=== PATIENT | female | born 1955 | race Caucasian/White ===

== ENCOUNTER 2019-07-29 10:58 | Day surgery (SDC) | payer BC ==
[2019-07-29] VITALS (10 sets, daily range): BP systolic 120–145; BP diastolic 72–91
[~2019-07-29] VITALS: Ht 162.6 cm; Wt 58.2 kg
[2019-07-29] MEDS ORDERED: CLINDAmcin 900mg/NS 50ml IVPB 50 ML IV ONE (11:10)
[2019-07-29] MEDS ORDERED: famotidine 20mg tablet PO ONE (11:12)
[2019-07-29] MEDS ORDERED: ringers solution, lacted 1,000 ML IV SCH ×2 (11:13→15:30)
[2019-07-29] MEDS ORDERED: HYDR-3972 PO (12:44)
[2019-07-29] MEDS ORDERED: ALLO100T15 PO (12:44)
[2019-07-29] MEDS ORDERED: [UNRECOGNIZED DRUG - CODE] PO (12:44)
[2019-07-29] MEDS ORDERED: IRBE150T24 PO (12:44)
[2019-07-29] MEDS ORDERED: LEVO150T8 PO (12:44)
[2019-07-29] MEDS ORDERED: LIDOcaine 1%/PF 5ML 10 MG/ML VIAL ONE (13:21)
[2019-07-29] MEDS ORDERED: sevoflurane 250ml liquid IH ONE (13:21)
[2019-07-29] MEDS ORDERED: fentaNYL/PF 50MCG/1 ML 2ML syringe ONE ×2 (13:22→13:52)
[2019-07-29] MEDS ORDERED: midazolam 2 mg/2 ml injection ONE (13:22)
[2019-07-29] MEDS ORDERED: BUPIVAcaine/PF 2.5mg/ml (0.25%) 10ml vial ONE ×2 (13:50→13:57)
[2019-07-29] MEDS ORDERED: ondansetron/PF 4mg/2ml inj ONE (14:03)
[2019-07-29] MEDS ORDERED: LIDOcaine 2% (20mg/ml) 5ml vial ONE (14:03)
[2019-07-29] MEDS ORDERED: dexamethasone sod phosphate 4mg/ml inj. ONE (14:03)
[2019-07-29] MEDS ORDERED: propofol inj 20 ML IV ONE (14:03)
--- NOTE | 2019-07-29 14:03 | NUR ---
Received from OR via [facility], accompanied by Anesthesiologist Chayito and report given by Anesthesiolgist. Pt VS stable O2 10L sats 98%, groin site tegaderm present and site CDI no hematoma present. 20G to right forearm 100cc/hr LR IVF. Will monitor closely.
[2019-07-29] MEDS ORDERED: meperidine/PF 25mg/ml syringe ONE ×2 (14:29→15:09)
[2019-07-29] MEDS: meperidine/PF 25mg/ml syringe IV PRN ×2 (15:07→15:16)
[2019-07-29] MEDS ORDERED: morphine 2 MG/ML inj. syringe IV PRN (15:30)
[2019-07-29] MEDS ORDERED: morphine 4 MG/ML inj SYRINge IV PRN (15:30)
[2019-07-29] MEDS ORDERED: oxyCODONE/APAP 5-325mg tablet PO ONE (15:30)
[2019-07-29] MEDS ORDERED: proCHLORperazine 10 MG/2 ml inj IV PRN (15:30)
[2019-07-29] MEDS ORDERED: meperidine/PF 25mg/ml syringe IV PRN ×3 (15:30)
[2019-07-29] MEDS ORDERED: ondansetron/PF 4mg/2ml inj IV PRN (15:30)
--- NOTE | 2019-07-29 15:43 | NUR ---
Pt discharged to vehicle without incident after IV DC'd. Reviewed all DC information and especially covered signs of infection due to her low WBC and leukemia. Pt knows what s/s to watch for. Pt has pain medications already called in to pharmacy from MD office. All belongings returned to patient and she is in her own clothing. Pt knows to call MD for follow up appt.
== END 2019-07-29 15:43 | disposition home or self-care (01) ==
LOC: PAS 10:58
PROVIDERS: ATTEND Surgery
DX: T81.89XA Other complications of procedures, not elsewhere classified, initial encounter (principal); C85.15 Unspecified B-cell lymphoma, lymph nodes of inguinal region and lower limb; I10 Essential (primary) hypertension; Z79.899 Other long term (current) drug therapy; Z90.710 Acquired absence of both cervix and uterus; Z98.890 Other specified postprocedural states; Z88.0 Allergy status to penicillin; Y83.8 Other surgical procedures as the cause of abnormal reaction of the patient, or of later complication, without mention of misadventure at the time of the procedure; Y92.89 Other specified places as the place of occurrence of the external cause
CPT/HCPCS: 38531; 82948; J1100; J2001; J2175; J2250; J2405; J2704; J3010; J3490; J7120; A4618; A6258; A7000